=== PATIENT | female | born 1985 | race Caucasian/White ===

== ENCOUNTER 2016-07-09 16:39 | Observation (INO) | payer SELFPAY ==
[~2016-07-09] VITALS: Ht 157.5 cm; Wt 85.0 kg
[~2016-07-09 16:39] MED LIST: ABIL2TAB2 PO; ALPR0.5T3 PO
[2016-07-09 17:00] VITALS: BP 107/56; PULSE 81; RESP 14; TEMP 98.2; O2SAT 98
[2016-07-09] MEDS ORDERED: SODIUM CHLOR 0.9% 1000 ML INJ 1,000 ML IV ONE ×2 (17:01→20:30)
--- NOTE | 2016-07-09 17:05 | PD ---
HPI Chief Complaint: OD/ Ingestion Time Seen by Provider: 17:05 Travel History International Travel<30 days: No Contact w/Intl Traveler<30days: No History of Present Illness HPI Patient is a 31-year-old female who presents to the emergency Department under Beck act after intentional overdose. Patient states that her intent was not to harm herself however she wanted to just "relax". She reports taking 10 - 0.5MG Xanax and 5 Wellbutrin XL 150 mg tablets. She denies any physical complaints at this time. She denies any suicidal or homicidal ideations, she denies any illicit drug use. She does endorse tobacco use. Patient further denies any visual or auditory hallucinations, she denies any new family or life stressors. [facility] Past Medical History Anxiety: Yes Depression: Yes Diminished Hearing: No Hypertension: Yes Immunizations Current: No Schizophrenia: Yes (schizoaffective disorder) : 0 Para: 0 Miscarriage: 0 : 0 Social History Alcohol Use: Yes (Social - 1-2x a week per pt.) Tobacco Use: Yes (Varies per pt.) Substance Use: No (Patient denies. ) Allergies-Medications (Allergen,Severity, Reaction): Coded Allergies: No Known Allergies (Verified , 07/09/16) Per pt. Reported Meds & Prescriptions Reported Meds & Active Scripts Active Reported Abilify (Aripiprazole) 2 Mg Tab 2 Mg PO DAILY Alprazolam 0.5 Mg Tab 0.5 Mg PO DAILY PRN Review of Systems Except as stated in HPI: all other systems reviewed are Neg Psychiatric: Positive: Anxiety, Depression Physical Exam Narrative GENERAL: Well-developed, well-nourished, alert female. Resting comfortably in no acute distress. SKIN: Warm and dry. HEAD: Atraumatic. Normocephalic. EYES: Pupils equal and round. No scleral icterus. No injection or drainage. ENT: No nasal bleeding or discharge. Mucous membranes pink and moist. NECK: Trachea midline. No JVD. CARDIOVASCULAR: Regular rate and rhythm. No murmur appreciated. RESPIRATORY: No accessory muscle use. Clear to auscultation. Breath sounds equal bilaterally. GASTROINTESTINAL: Abdomen soft, non-tender, nondistended. Hepatic and splenic margins not palpable. MUSCULOSKELETAL: No obvious deformities. No clubbing. No cyanosis. No edema. NEUROLOGICAL: Awake and alert. No obvious cranial nerve deficits. Motor grossly within normal limits. Normal speech. PSYCHIATRIC: Flat mood and affect; insight and judgment impaired. Data Data Last Documented VS Vital Signs Date Time Temp Pulse Resp B/P Pulse Ox O2 Delivery O2 Flow Rate FiO2 07/09/16 18:16 79 15 111/71 97 Room Air 07/09/16 17:00 98.2 Orders Electrocardiogram (07/09/16 17:01) Alcohol (Ethanol) (07/09/16 17:01) Complete Blood Count With Diff (07/09/16 17:) Comprehensive Metabolic Panel (07/09/16 17:01) Drug Screen, Random Urine (07/09/16 17:01) Salicylates (Aspirin) (07/09/16 17:01) Tylenol (Acetaminophen) (07/09/16 17:01) Ua Includes Microscopic (07/09/16 17:01) Iv Access Insert/Monitor (07/09/16 17:01) Ecg Monitoring (07/09/16 17:01) Oximetry (07/09/16 17:01) Psych Screen (07/09/16 17:01) Sodium Chloride 0.9% Flush (Ns Flush) (07/09/16 17:15) Sodium Chlor 0.9% 1000 Ml Inj (Ns 1000 M (07/09/16 17:01) Electrocardiogram (07/09/16 19:00) Diet Regular Basic (07/09/16 Dinner) Admit Order (Ed Use Only) (07/09/16 18:35) Labs Laboratory Tests Test 07/09/16 07/09/16 17:25 17:32 White Blood Count 7.0 TH/MM3 Red Blood Count 4.09 MIL/MM3 Hemoglobin 12.4 GM/DL Hematocrit 37.0 % Mean Corpuscular Volume 90.3 FL Mean Corpuscular Hemoglobin 30.3 PG Mean Corpuscular Hemoglobin 33.5 % Concent Red Cell Distribution Width 12.5 % Platelet Count 207 TH/MM3 Mean Platelet Volume 8.3 FL Neutrophils (%) (Auto) 52.8 % Lymphocytes (%) (Auto) 36.3 % Monocytes (%) (Auto) 8.5 % Eosinophils (%) (Auto) 1.3 % Basophils (%) (Auto) 1.1 % Neutrophils # (Auto) 3.7 TH/MM3 Lymphocytes # (Auto) 2.5 TH/MM3 Monocytes # (Auto) 0.6 TH/MM3 Eosinophils # (Auto) 0.1 TH/MM3 Basophils # (Auto) 0.1 TH/MM3 CBC Comment DIFF FINAL Differential Comment Sodium Level 143 MEQ/L Potassium Level 4.1 MEQ/L Chloride Level 112 MEQ/L Carbon Dioxide Level 24.2 MEQ/L Anion Gap 7 MEQ/L Blood Urea Nitrogen 12 MG/DL Creatinine 0.92 MG/DL Estimat Glomerular Filtration 70 ML/MIN Rate Random Glucose 57 MG/DL Calcium Level 8.4 MG/DL Total Bilirubin 0.2 MG/DL Aspartate Amino Transf 14 U/L (AST/SGOT) Alanine Aminotransferase 20 U/L (ALT/SGPT) Alkaline Phosphatase 58 U/L Total Protein 6.9 GM/DL Albumin 3.6 GM/DL Salicylates Level 3.5 MG/DL Acetaminophen Level LESS THAN 2.0 MCG/ML Ethyl Alcohol Level LESS THAN 3 MG/DL Urine Color YELLOW Urine Turbidity HAZY Urine pH 6.0 Urine Specific [place] 1.023 Urine Protein TRACE mg/dL Urine Glucose (UA) NEG mg/dL Urine Ketones NEG mg/dL Urine Occult Blood NEG Urine Nitrite NEG Urine Bilirubin NEG Urine Urobilinogen 2.0 MG/DL Urine Leukocyte Esterase LARGE Urine RBC 2 /hpf Urine WBC 27 /hpf Urine Squamous Epithelial 3 /hpf Cells Urine Mucus FEW /lpf Microscopic Urinalysis Comment Urine Opiates Screen NEG Urine Barbiturates Screen NEG Urine Amphetamines Screen NEG Urine Benzodiazepines Screen POS Urine Cocaine Screen NEG Urine Cannabinoids Screen NEG MDM Medical Decision Making Medical Screen Exam Complete: Yes Emergency Medical Condition: Yes Interpretation(s) Vital Signs Date Time Temp Pulse Resp B/P Pulse Ox O2 Delivery O2 Flow Rate FiO2 07/09/16 17:00 98.2 81 14 107/56 98 Differential Diagnosis Cardiac arrhythmia versus intentional overdose versus unintentional overdose versus electrolyte abnormality versus hyperthermia versus hypotension versus respiratory distress versus seizures Narrative Course Patient is a 31-year-old female who presented to emergency department via EMS under a Beck act for an overdose. Patient reports overdose was not to harm herself. Patient's vital signs are currently stable, she is resting comfortably with no physical complaints. Labs ordered, EKG ordered. Patient placed on telemetry monitoring, continuous pulse oximetry, IV access established. Poison control stated that due to the Wellbutrin it's an automatic 24-hour admission for observation. Patient is at risk for seizures, QRS and QT prolongation, hypotension, hyperthermia. Management will be symptomatic at this time. Initial EKG at 1721 shows sinus rhythm with a rate of 83. EP EKG ordered for 1899. Dr. Red accepted admission under observation for Dr. Valdez. Diagnosis Primary Impression: Overdose Qualified Code: T50.904A - Overdose, undetermined intent, initial encounter Admitting Information Admitting Physician Requests: Observation Condition: Stable Vicky Fregoso Jul 09, 2016 17:05
[2016-07-09 17:10] VITALS: O2SAT 98
[2016-07-09] MEDS ORDERED: SODIUM CHLORIDE 0.9% FLUSH 5 ML FLUSH IVF PRN (17:15)
[2016-07-09 17:34] VITALS: BP 123/76; PULSE 79; RESP 15; O2SAT 97
[2016-07-09 17:35] LABS: AUTOMATED NEUTROPHIL # 3.7 TH/MM3 (1.8-7.7); BASOPHIL # 0.1 TH/MM3 (0-0.2); BASOPHIL % 1.1 % (0.0-2.0); EOSINOPHIL # 0.1 TH/MM3 (0-0.4); EOSINOPHIL % 1.3 % (0.0-4.0); HEMO FLAGS DIFF FINAL; LYMPH % 36.3 % (9.0-44.0); LYMPHOCYTE # 2.5 TH/MM3 (1.0-4.8); MEAN CELL VOLUME 90.3 FL (80.0-100.0); MEAN CORPUSCULAR HEMOGLOBIN 30.3 PG (27.0-34.0); MEAN CORPUSCULAR HGB CONC 33.5 % (32.0-36.0); MONO % 8.5 % (0.0-8.0); NEUT % 52.8 % (16.0-70.0); PLATELET COUNT 207 TH/MM3 (150-450); RED BLOOD COUNT 4.09 MIL/MM3 (4.00-5.30); RED CELL DISTRIBUTION WIDTH 12.5 % (11.6-17.2)
[2016-07-09 17:52] LABS: BLOOD, URINE NEG (NEG); GLUCOSE,URINE NEG (NEG); KETONE, URINE NEG (NEG); MUCUS URINE FEW /lpf (OCC); NITRITE,URINE NEG (NEG); SQUAMOUS EPITHELIAL CELL URINE 3 /hpf (0-5); URINE COLOR YELLOW (YELLW/STRAW)
[2016-07-09 17:58] LABS: AMPHETAMINE, URINE NEG (NEG); BARBITURATES, URINE NEG (NEG); COCAINE, URINE NEG (NEG)
[2016-07-09 18:16] VITALS: BP 111/71; PULSE 79; RESP 15; O2SAT 97
[2016-07-09 18:16] LABS: ALT (GPT) 20 U/L (10-53); ANION GAP 7 MEQ/L (5-15); AST (GOT) 14 U/L (15-37); BICARBONATE 24.2 MEQ/L (21.0-32.0); BLOOD UREA NITROGEN 12 MG/DL (7-18); CHLORIDE 112 MEQ/L (98-107); GLOMERULAR FILTRATION RATE 70 ML/MIN (>89); POTASSIUM 4.1 MEQ/L (3.5-5.1); SODIUM (NA) 143 MEQ/L (136-145)
[2016-07-09 18:18] LABS: ACETAMINOPHEN LESS THAN 2.0 MCG/ML (10.0-30.0); ALKALINE PHOSPHATASE 58 U/L (45-117); TOTAL BILIRUBIN ADULT 0.2 MG/DL (0.2-1.0)
[2016-07-09 19:19] VITALS: BP 95/62; PULSE 95; RESP 14; O2SAT 97
[2016-07-09] MEDS ORDERED: NALOXONE HCL 0.4 MG/ML AMP IV PRN (20:15)
[2016-07-09 20:51] VITALS: BP 106/65; PULSE 104; RESP 14; O2SAT 97
[2016-07-09] MEDS ORDERED: ONDANSETRON HCL 4 MG/2 ML VIAL IVP PRN (21:00)
[2016-07-09 21:06] LABS: BETA HCG QUANT LESS THAN 1 MIU/ML (0-5)
[2016-07-09] MEDS: SODIUM CHLOR 0.9% 1000 ML INJ 1,000 ML IV SCH (21:09)
[2016-07-09] MEDS: HEPARIN SODIUM - SQ 10,000 UNITS/ML VIAL SQ SCH (21:09)
[2016-07-10] VITALS (7 sets, daily range): BP systolic 91–125; BP diastolic 52–85; PULSE 76–92; RESP 14–21; TEMP 98.2–98.3; O2SAT 98–99
--- NOTE | 2016-07-10 08:51 | HHI.HP ---
HPI Service [facility] Primary Care Physician Rebeca Mercado Admission Diagnosis OD Diagnoses: Chief Complaint: OD (Reena Joshi) Travel History International Travel<30 Days: No Contact w/Intl Traveler <30 Da: No (Reena Joshi) History of Present Illness Patient is a 31-year-old female who presented to the emergency Department under Beck act after intentional overdose. Pt. not a reliable historian, states she can't recall anything and was just "trying to sleep". Denies suicidal ideation or attempt, wants to know who called to bring her to hospital. Endorses hx of anxiety, no prior suicide attempts. Review of EMR shows 2 ER visits last year for suicidal ideation. States she only takes Xanax but bottles found at home indicate she takes Abilify and Wellbutrin. She reported to ED taking 10 - 0.5MG Xanax and 5 Wellbutrin XL 150 mg tablets. Beck Act statement reviewed, indicated that pt. called mother and YULIA went to her house, found house unlocked. Pt. was found on the floor with a cross, surrounded by pictures and suicide notes. In the ED, pt. evaluated, labs completed. BMP remarkable for low blood glucose of 57. CBC normal. EKG SR, no acute findings, normal QT. Poison control stated that due to the Wellbutrin it's an automatic 24-hour admission for observation. Patient is at risk for seizures, QRS and QT prolongation, hypotension, hyperthermia. Initial EKG at 1721 shows sinus rhythm with a rate of 83. Pt. examined in ED, only complains of dizziness, no visual or auditory hallucinations. She is smiling during evaluation, does not want to elaborate on hx of anxiety. When asked about previous ED visits, she denies them. Has no complaints. Pt. admitted for further evaluation and treatment. ( Reena Joshi) Review of Systems ROS Limitations: Uncooperative ("I don't remember" ) Constitutional: COMPLAINS OF: Dizziness (Reena Joshi) Past Family Social History Past Medical History Depression Anxiety Reported hx of HTN, denies any Past Surgical History None Reported Medications Reported Meds & Active Scripts Active Reported Abilify (Aripiprazole) 2 Mg Tab 2 Mg PO DAILY Alprazolam 0.5 Mg Tab 0.5 Mg PO DAILY PRN (Reena Joshi) Allergies: Coded Allergies: No Known Allergies (Verified , 07/09/16) Per pt. Active Ordered Medications Inpatient Medications Aripiprazole 2 mg 2 mg DAILY PO ; Start 07/10/16 at 09:00 Heparin Sodium (Porcine) (Heparin Inj) 5,000 units Q12H SQ Last administered on 07/09/16 21:09; Start 07/09/16 at 21:00 IV Flush (NS Flush) 2 ml UNSCH PRN IVF FLUSH AFTER USING IV ACCESS; Start 07/09 at 17:15 Naloxone HCl (Narcan Inj) 0.4 mg UNSCH PRN IV SEE LABEL COMMENTS; Start at 20:15 Ondansetron HCl (Zofran Inj) 4 mg Q6H PRN IVP NAUSEA OR VOMITING; Start at 21:00 Sodium Chloride (NS 1000 ml Inj) 1,000 ml @ 999 mls/hr BOLUS ONCE IV Last administered on 07/09/16 20:34; Start 07/09/16 at 20:30; Stop 07/09/16 at 21:30 ; Status DC Family History Mother, alive and well, hx HTN Father, alive and well, doesn't know his medical hx Sister, hx of drug abuse Social History 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 Lives alone, not , no kids. Smokes 2 ppd, no ETOH, no substance abuse. (Reena Joshi) Physical Exam Vital Signs Vital Signs Date Time Temp Pulse Resp B/P Pulse Ox O2 Delivery O2 Flow Rate FiO2 07/10/16 06:05 116/56 07/10/16 04:09 84 106/67 07/10/16 03:30 80 17 103/61 98 Room Air 07/10/16 00:00 87 21 91/52 Room Air 07/09/16 20:51 104 14 106/65 97 Room Air 07/09/16 19:19 95 14 95/62 97 Room Air 07/09/16 18:16 79 15 111/71 97 Room Air 07/09/16 17:34 79 15 123/76 97 Room Air 07/09/16 17:10 98 Room Air 07/09/16 17:10 79 14 98 Room Air 07/09/16 17:00 98.2 81 14 107/56 98 Physical Exam GENERAL: This is a well-nourished, well-developed patient, in no apparent distress. SKIN: No rashes, ecchymoses or lesions. Cool and dry. HEAD: Atraumatic. Normocephalic. No temporal or scalp tenderness. EYES: Pupils equal round and reactive. Extraocular motions intact. No scleral icterus. No injection or drainage. ENT: Nose without bleeding, purulent drainage or septal hematoma. Throat without erythema, tonsillar hypertrophy or exudate. Uvula midline. Airway patent. NECK: Trachea midline. No JVD or lymphadenopathy. Supple, nontender, no meningeal signs. CARDIOVASCULAR: Regular rate and rhythm without murmurs, gallops, or rubs. RESPIRATORY: Clear to auscultation. Breath sounds equal bilaterally. No wheezes , rales, or rhonchi. GASTROINTESTINAL: Abdomen soft, non-tender, nondistended. No hepato-splenomegaly , or palpable masses. No guarding. MUSCULOSKELETAL: Extremities without clubbing, cyanosis, or edema. No joint tenderness, effusion, or edema noted. No calf tenderness. Negative Homans sign bilaterally. NEUROLOGICAL: Awakes to voice, oriented x 3. No focal deficits. Cranial nerves II through XII intact. Motor and sensory grossly within normal limits. Five out of 5 muscle strength in all muscle groups. Normal speech. PSYCHIATRIC: pt. smiling during interview, denies SI,HI. Reluctant to elaborate on why she is here. Little direct eye contact. Laboratory Laboratory Tests Test 07/09/16 07/09/16 17:25 17:32 White Blood Count 7.0 Red Blood Count 4.09 Hemoglobin 12.4 Hematocrit 37.0 Mean Corpuscular Volume 90.3 Mean Corpuscular Hemoglobin 30.3 Mean Corpuscular Hemoglobin 33.5 Concent Red Cell Distribution Width 12.5 Platelet Count 207 Mean Platelet Volume 8.3 Neutrophils (%) (Auto) 52.8 Lymphocytes (%) (Auto) 36.3 Monocytes (%) (Auto) 8.5 Eosinophils (%) (Auto) 1.3 Basophils (%) (Auto) 1.1 Neutrophils # (Auto) 3.7 Lymphocytes # (Auto) 2.5 Monocytes # (Auto) 0.6 Eosinophils # (Auto) 0.1 Basophils # (Auto) 0.1 CBC Comment DIFF FINAL Differential Comment Sodium Level 143 Potassium Level 4.1 Chloride Level 112 Carbon Dioxide Level 24.2 Anion Gap 7 Blood Urea Nitrogen 12 Creatinine 0.92 Estimat Glomerular Filtration 70 Rate Random Glucose 57 Calcium Level 8.4 Total Bilirubin 0.2 Aspartate Amino Transf 14 (AST/SGOT) Alanine Aminotransferase 20 (ALT/SGPT) Alkaline Phosphatase 58 Total Protein 6.9 Albumin 3.6 Human Chorionic Gonadotropin, LESS THAN 1 Quant Salicylates Level 3.5 Acetaminophen Level LESS THAN 2.0 Ethyl Alcohol Level LESS THAN 3 Urine Color YELLOW Urine Turbidity HAZY Urine pH 6.0 Urine Specific [place] 1.023 Urine Protein TRACE Urine Glucose (UA) NEG Urine Ketones NEG Urine Occult Blood NEG Urine Nitrite NEG Urine Bilirubin NEG Urine Urobilinogen 2.0 Urine Leukocyte Esterase LARGE Urine RBC 2 Urine WBC 27 Urine Squamous Epithelial 3 Cells Urine Mucus FEW Microscopic Urinalysis Comment Urine Opiates Screen NEG Urine Barbiturates Screen NEG Urine Amphetamines Screen NEG Urine Benzodiazepines Screen POS Urine Cocaine Screen NEG Urine Cannabinoids Screen NEG (Reena Joshi) Result Diagram: 07/09/16 17207/09/161724 Assessment and Plan Problem List: (1) Suicide attempt (2) Benzodiazepine overdose (3) Unspecified episodic mood disorder (4) Overdose (5) Anxiety (6) Tobacco abuse Assessment and Plan Admit to Dr. Valdez 31-year-old female who presented to the emergency Department under Beck act after intentional overdose. States just "trying to sleep", denies suicidal ideation or attempt. Hx anxiety, depression. Has visited ED 2 x in the past 6 months for suicide ideation. -Monitor telemetry for QT interval -Seizure precautions -Monitor VS, sats -Repeat BMP now -EKG x 3 reviewed, QT stable [id number] -neuro checks stable -continue IVF -Sitter at bsd now, discussed with RN and charge nurse. Pt at risk for self harm. -Psychiatric consultation -Will follow on BMP report if normal, pt. cleared to proceed with discharge to psych if psychiatrist in agreement. Hx of anxiety, depression-recurrence -Continue Abilify Home medications reviewed and initiated as indicated. SCDs/Heparin for DVT prophylaxis Plan of care discussed with pt, RN, and attending. Further management of the patient will dependent on the hospital. This patient was seen by myself and Dr. Valdez, this H/P is written on his behalf. ADDENDUM 1500 07/10/2016 BMP reviewed, stable. No ekg abnormalities has been evaluated by psychiatry, recommends sitter and tx to psych when medically stable Pt. medically stable to proceed to psych Discharge to psych today (Reena Joshi) Assessment and Plan Patient seen and examined as above Chart reviewed Meds and labs reviewed Previous notes reviewed Plan of care discussed with HEAD WORKER Discussed with patient Discussed with psychiatrist (Sherly Valdez MD) Problem Qualifiers (1) Benzodiazepine overdose: Qualified Code: T42.4X4A - Benzodiazepine overdose, undetermined intent, initial encounter (2) Overdose: Qualified Code: T50.904A - Overdose, undetermined intent, initial encounter Reena Joshi Jul 10, 2016 08:51 Sherly Valdez MD Jul 10, 2016 16:07
[2016-07-10] MEDS ORDERED: ARIPiprazole 2 MG TAB PO SCH (09:00)
[2016-07-10] MEDS: SODIUM CHLOR 0.9% 1000 ML INJ 1,000 ML IV SCH (10:43)
[2016-07-10] MEDS: HEPARIN SODIUM - SQ 10,000 UNITS/ML VIAL SQ SCH (10:44)
--- NOTE | 2016-07-10 13:32 | PD.CONS ---
Provisional Diagnosis Admission Date Jul 09, 2016 at 18:37 [place] I. Unspecified anxiety [place] II. Deferred [place] III. Denies History of Present Illness Service Psychiatry Consult Requested By Primary Care Physician Rebeca LOPEZ The patient is a 31-year-old woman, domiciled alone, single, unemployed, with psychiatric history of anxiety, no previous psychiatric hospitalizations, no previous suicide attempts, she is on Xanax 0.5 mg when necessary for anxiety, who presented to the emergency Department under Beck act after intentional overdose. As per ER physician "Pt. not a reliable historian, states she can't recall anything and was just "trying to sleep". Denies suicidal ideation or attempt, wants to know who called to bring her to hospital. Endorses hx of anxiety, no prior suicide attempts. Review of EMR shows 2 ER visits last year for suicidal ideation. States she only takes Xanax but bottles found at home indicate she takes Abilify and Wellbutrin. She reported to ED taking 10 - 0.5MG Xanax and 5 Wellbutrin XL 150 mg tablets. Bekc Act statement reviewed, indicated that pt. called mother and YULIA went to her house, found house unlocked. Pt. was found on the floor with a cross, surrounded by pictures and suicide notes. In the ED, pt. evaluated, labs completed. BMP remarkable for low blood glucose of 57. CBC normal. EKG SR, no acute findings, normal QT. Poison control stated that due to the Wellbutrin it' s an automatic 24-hour admission for observation. Patient is at risk for seizures, QRS and QT prolongation, hypotension, hyperthermia. Initial EKG at 1721 shows sinus rhythm with a rate of 83. Pt. examined in ED, only complains of dizziness, no visual or auditory hallucinations. She is smiling during evaluation, does not want to elaborate on hx of anxiety. When asked about previous ED visits, she denies them". On psychiatric evaluation today patient is found superficially cooperative, distant, oppositional for the evaluation. Patient says that she doesn't remember the reason she is in the hospital, she says that she wants to sleep and she woke up in the hospital, but she doesn't remember anything what happened while she was asleep. She says that she has been stressed in the last days, but not depressed. She denies sadness, denies anhedonia, denies hopelessness, denies helplessness, she denies low appetite, denies low energy, denies guiltiness, she denies suicidal and anxiety. Patient says that she has many things to live for. She says that she enjoys life and she would never kill herself. She does report anxiety, Mostly related with unemployed and financial stressors, but she takes Xanax "once in a while and that controls me" . When she was confronted about the reason of her ER visit and Beck act, she first states she did not know she was Beck acted and she says that she doesn't really know what were talking about. Then she was red the Beck act information , but she still stays that she doesn't know what he talked about, but she did not write anything about committing suicide or dying. Patient is oriented is oriented 3, even though she is guarded, no paranoia, delusions, disorganized behavior, agitation, gross cognitive impairment is observed. Patient denies the use of alcohol and illicit drugs. Review of Systems Constitutional: DENIES: Diaphoretic episodes, Fatigue, Fever, Weight gain, Weight loss, Chills, Dizziness, Change in appetite, Night Sweats Endocrine: DENIES: Abnorml menstrual pattern, Heat/cold intolerance, Polydipsia , Polyuria, Polyphagia Eyes: DENIES: Blurred vision, Diplopia, Eye inflammation, Eye pain, Vision loss , Photosensitivity, Double Vision Ears, nose, mouth, throat: DENIES: Tinnitus, Hearing loss, Vertigo, Nasal discharge, Oral lesions, Throat pain, Hoarseness, Ear Pain, Running Nose, Epistaxis, Sinus Pain, Toothache, Odynophagia Respiratory: DENIES: Apneas, Cough, Snoring, Wheezing, Hemoptysis, Sputum production, Shortness of breath Cardiovascular: DENIES: Chest pain, Palpitations, Syncope, Dyspnea on Exertion , PND, Lower Extremity Edema, Orthopnea, Claudication Gastrointestinal: DENIES: Abdominal pain, Black stools, Bloody stools, Constipation, Diarrhea, Nausea, Vomiting, Difficulty Swallowing, Anorexia Musculoskeletal: DENIES: Joint pain, Muscle aches, Stiffness, Joint Swelling, Back pain, Neck pain Integumentary: DENIES: Abnormal pigmentation, Pruritus, Rash, Nail changes, Breast masses, Breast skin changes, Nipple discharge Hematologic/lymphatic: DENIES: Bruising, Lymphadenopathy Immunologic/allergic: DENIES: Eczema, Urticaria Neurologic: DENIES: Abnormal gait, Headache, Localized weakness, Paresthesias, Seizures, Speech Problems, Tremor, Poor Balance Psychiatric: COMPLAINS OF: Anxiety, DENIES: Confusion, Mood changes, Depression, Hallucinations, Agitation, Suicidal Ideation, Homicidal Ideation, Delusions Past Family Social History Coded Allergies: No Known Allergies (Verified , 07/09/16) Per pt. Reported Medications Aripiprazole (Abilify)2 Mg Tab2 Mg PO DAILY #30 TAB Ref 0 05/27/16 Alprazolam 0.5 Mg Tab0.5 Mg PO DAILY PRN (ANXIETY) Ref 0 05/27/16 Current Medications Medications (Trade) Dose Ordered Sig/Ariadna Route Start Time Stop Time Status Last Admin IV Flush 2 ml 2 ml UNSCH PRN IVF 07/09/16 17:15 (NS 1000 ml Inj) 1,000 ml @ 100 mls/hr Q10H IV 07/09/16 21:00 07/10/16 10:43 (Zofran Inj) 4 mg Q6H PRN IVP 07/09/16 21:00 (Heparin Inj) 5,000 units Q12H SQ 07/09/16 21:00 07/10/16 10:44 (Narcan Inj) 0.4 mg UNSCH PRN IV 07/09/16 20:15 (Abilify) 2 mg DAILY PO 07/10/16 09:00 07/10/16 10:43 Family History She denies Social History Patient was born in [place], she has been living in [place] for 33 years, she is alone, she is single, no kids, unemployed, she has a bachelor degree Physical Exam Vital Signs Vital Signs Date Time Temp Pulse Resp B/P Pulse Ox O2 Delivery O2 Flow Rate FiO2 07/10/16 10:30 76 20 125/85 99 Room Air 07/09/16 17:00 98.2 I/O 07/09/16 07/09/16 07/10/16 08:00 16:00 00:00 Intake Total 240 ml Balance 240 ml Mental Status Examination Appearance Overweight woman, good hygiene, hospital [facility], guarded, kind of oppositional, superficially cooperative Speech: Hesitant Orientation: x3 Thought Process: Logical Thought Content: Unremarkable Hallucination Type: None Attention and Concentration: Good Suicidal Ideation: Yes Previous Suicide Attempts: No Homicidal Ideation: No Previous Homicide Attempts: No Judgement: Impulsive Affect: Irritable Mood: Angry Motor Activity: Normal gait Assessment & Plan Problem List: (1) Major depressive disorder, single episode, severe without psychosis Assessment & Plan: The patient is a 31-year-old woman, domiciled alone, single, unemployed, with psychiatric history of anxiety, no previous psychiatric hospitalizations, no previous suicide attempts, she is on Xanax 0.5 mg when necessary for anxiety, who presented to the emergency Department under Beck act after intentional overdose. Patient is a very poor historian, very superficial, oppositional and guarded. She continues to say that she doesn't remember overdosing, she doesn't remember writing in a suicidal statement suicidal note as her mother explained and he sustained in Beck act. At this moment she denies depression, she denies anxiety, she denies perceptual disturbances, she denies suicidal or homicidal ideation. He is my opinion the patient is minimizing symptomatology of depression and current episodes of suicidal attempt and obviously the circumstances around her depression and suicidal attempt. Patient represents a high risk an imminent danger to herself and needs psychiatric admission for stabilization, potential medication treatment, to complete psychiatric assessment, and for safety. More collateral information for the mother is important to complete psychiatric assessment. No psychotropics at this moment. Support and psychoeducation provided. Please transfer patient to psychiatric valerio, is medically clear she is a good candidate for 2600 unit, if she continues to need medical treatment could be a good candidate for the Med[facility] unit. Please, continue one-to-one sitter for safety. ICD Code: F32.2 Assessment & Plan Estimated LOS: Khurram Castillo MD Jul 10, 2016 13:32
[2016-07-10 14:24] LABS: HEMATOCRIT 36.2 % (35.0-46.0); MEAN CELL VOLUME 91.8 FL (80.0-100.0); MEAN CORPUSCULAR HEMOGLOBIN 29.9 PG (27.0-34.0); MEAN CORPUSCULAR HGB CONC 32.5 % (32.0-36.0); PLATELET COUNT 198 TH/MM3 (150-450); RED BLOOD COUNT 3.95 MIL/MM3 (4.00-5.30); RED CELL DISTRIBUTION WIDTH 12.8 % (11.6-17.2); REVIEW FLAG FINAL; WHITE BLOOD COUNT 5.6 TH/MM3 (4.0-11.0)
[2016-07-10 14:46] LABS: BICARBONATE 21.5 MEQ/L (21.0-32.0); POTASSIUM 3.8 MEQ/L (3.5-5.1)
--- NOTE | 2016-07-10 14:57 | HHI.DCPOC ---
Discharge Care Plan Diagnosis: (1) Suicide attempt (2) Benzodiazepine overdose (3) Anxiety (4) Tobacco abuse (5) Unspecified episodic mood disorder (6) Major depressive disorder, single episode, severe without psychosis Your Health Problems Are: Anxiety Goals to Promote Your Health * To prevent worsening of your condition and complications * To maintain your health at the optimal level Directions to Meet Your Goals Take your medications as prescribed Follow your dietary instruction Follow activity as directed Keep your appointments as scheduled Take your immunizations and boosters as scheduled If your symptoms worsen call your PCP, if no PCP go to Urgent Care Center or Emergency Room Smoking is Dangerous to Your Health. Avoid second hand smoke Call the 24-hour hour crisis hotline for domestic abuse at Reena Joshi Jul 10, 2016 14:57
--- NOTE | 2016-07-10 22:34 | EKG ---
Date Performed: 07/09/2016 Time Performed: 21:21:34 PTAGE: 31 years EKG: Sinus rhythm NONSPECIFIC T-WAVE ABNORMALITY BORDERLINE ECG PREVIOUS TRACING : 07/09/2016 19.09 Compared to prior tracing no significant change DOCTOR: Karel Herrera Interpretating Date/Time 07/10/2016 22:31:39
--- NOTE | 2016-07-10 22:37 | EKG ---
Date Performed: 07/09/2016 Time Performed: 19:09:51 PTAGE: 31 years EKG: Sinus rhythm NORMAL ECG PREVIOUS TRACING : 07/09/2016 17.21 Compared to prior tracing no significant change DOCTOR: Karel Herrera Interpretating Date/Time 07/10/2016 22:35:01
--- NOTE | 2016-07-10 22:40 | EKG ---
Date Performed: 07/09/2016 Time Performed: 17:21:57 PTAGE: 31 years EKG: Sinus rhythm NORMAL ECG NO PREVIOUS TRACING DOCTOR: Karel Herrera Interpretating Date/Time 07/10/2016 22:36:30
== END 2016-07-10 17:38 ==
LOC: NEPC 16:39 → NEDH 18:37 → NEPHCDU 07-10 13:15
PROVIDERS: ADMIT Specialist; ATTEND Specialist
DX: T42.4X2A Poisoning by benzodiazepines, intentional self-harm, initial encounter (principal); F32.2 Major depressive disorder, single episode, severe without psychotic features; F25.9 Schizoaffective disorder, unspecified; F41.9 Anxiety disorder, unspecified; I10 Essential (primary) hypertension; Z72.0 Tobacco use
CPT/HCPCS: 80048; 80053; 80307; 80329; 81001; 84702; 85025; 85027; 93005; 96360; 99285; G0378; J1644; J7030; 80320; G0480

== ENCOUNTER 2016-07-10 17:41 | Inpatient (IN) | payer SELFPAY ==
[~2016-07-10] VITALS: Ht 157.5 cm; Wt 82.8 kg
[2016-07-10 17:35] VITALS: BP 128/85; PULSE 75; RESP 16; TEMP 97.7; O2SAT 99
[2016-07-10] MEDS ORDERED: ALUMINUM/MAGNESIUM/SIMETH 30 ML CUP PO PRN (18:00)
[2016-07-10] MEDS ORDERED: ACETAMINOPHEN 325 MG TAB PO PRN (18:00)
[2016-07-10] MEDS ORDERED: LORazepam 2 MG/ML VIAL IM PRN (18:00)
[2016-07-10] MEDS ORDERED: MAGNESIUM HYDROXIDE SUSP 30 ML CUP PO PRN (18:00)
[2016-07-10] MEDS ORDERED: LORazepam 1 MG TAB PO PRN (18:00)
[2016-07-10] MEDS: REMOVE OLD NICOTINE PATCH T-DERMAL SCH (21:00)
[2016-07-11 06:00] VITALS: BP 120/80; PULSE 69; RESP 16; TEMP 97.4
[2016-07-11] MEDS: NICOTINE 14 MG/24 HR PATCH T-DERMAL SCH (09:00)
--- NOTE | 2016-07-11 10:20 | HHI.HP ---
Provisional Diagnosis Admission Date Jul 10, 2016 at 17:41 [place] I. Generalized anxiety disorder [place] II. No diagnosis [place] III. Please see the emergency room evaluation [place] IV. Moderate stress difficulty coping [place] V. GAF of 45 Certification of Person's Competence To Provide Express and Informed Consent I have personally examined Samina Watson , a person being served at [facility] on, Jul 11, 2016 10:09. Express and informed consent means consent voluntarily given in writing, by a competent person, after sufficient explanation and disclosure of the subject matter involved to enable the person to make a knowing and willful decision without any element of force, fraud, deceit, duress, or other form of constraint or coercion. This person is 18 years of age or older, is not now known to be incompetent to consent to treatment with a guardian advocate, and does not have a health care surrogate or proxy currently making medical treatment decisions. I have found this person to be one of the following: [x] Competent to provide express and informed consent, as defined above, for voluntary admission to this facility and is competent to provide express and informed consent for treatment. He/she has the consistent capacity to make well reasoned, willful, and knowing decisions concerning his or her medical or mental health treatment. The person fully and consistently understands the purpose of the admission for examination/placement and is fully capable of personally exercising all rights assured under [place] [] Incompetent to provide express and informed consent to voluntary admission, and this is incompetent to provide express and informed consent to treatment. The person must be transferred to involuntary status and a petition for a guardian advocate filed with the Circuit Court. [] Refusing to provide express and informed consent to voluntary admission but is competent to provide express and informed consent for treatment. The person must be discharged or transferred to involuntary status. Form shall be completed within 24 hours of a person's arrival at the receiving facility and filed in the clinical record of each person: 1. Admitted on a voluntary basis 2. Permitted to provide express and informed consent to his/her own treatment 3. Allowed to transfer from involuntary to voluntary status 4. Prior to permitting a person to consent to his or her own treatment after having been previously found incompetent to consent to treatment. History of Present Illness Capacity: Has Capacity HPI This is a 31-year-old white female who is single and unemployed with a history of anxiety. Was admitted after she was medically stabilized from age hard in the emergency room. Patient claimed that she does not remember much other than taking just the 1 or 2 Xanax to help her sleep and then she ended up here. She claimed that she does not remember calling her mother and her mother had called Police Department to make sure that she is safe she was found in her house on the floor with the cross surrounded by pictures and questionable suicide note or her diary. Patient denies any suicidal ideation intentions or plan. She has no previous suicide attempts. She was hospitalized once for few days and discharged. She claimed that she does not remember taking Abilify or Wellbutrin she in the past was prescribed but did not like it so was not taking it and does not wish to take any medication. 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 She has a bachelor's degree. She denies any alcohol or drug use and/or abuse. All this things are going on for the last 1 year specially her anxiety and was prescribed Xanax is when necessary but other than that she has not taken any medication. Patient denies any auditory or visual hallucinations. Denies any paranoid or grandiose delusion. Review of Systems Except as stated in HPI: all other systems reviewed are Neg Psychiatric: COMPLAINS OF: Anxiety, Mood changes Past Psych History Psychological trauma history Patient denied any physical verbal sexual abuse growing up Violence risk - others (6 mos) Patient denies Violence risk - self (6 mos) Patient denies any suicidal ideation intentions of plan. She does not remember much around surrounding the circumstances but she remember taking couple of Xanax to help her sleep Substance Abuse History Drugs/Alcohol past 12 months Patient denies any history of alcohol or drug abuse Past Family Social History Coded Allergies: No Known Allergies (Verified , 07/09/16) Per pt. Discontinued Reported Medications Aripiprazole (Abilify)2 Mg Tab2 Mg PO DAILY #30 TAB Ref 0 05/27/16 Alprazolam 0.5 Mg Tab0.5 Mg PO DAILY PRN (ANXIETY) Ref 0 05/27/16 Current Medications Medications (Trade) Dose Ordered Sig/Ariadna Route Start Time Stop Time Status Last Admin (Ativan) 1 mg Q6H PRN PO 07/10/16 18:00 (Ativan Inj) 1 mg Q6H PRN IM 1/11/17 18:00 (Tylenol) 650 mg Q4H PRN PO 07/10/16 18:00 07/11/16 09:03 (Milk Of Magnesia Liq) 30 ml DAILY PRN PO 07/10/16 18:00 (Mag-Al Plus Susp Liq) 30 ml Q6H PRN PO 07/10/16 18:00 (Habitrol 14 Mg Patch.24 Hr) 1 patch DAILY T-DERMAL 07/11/16 09:00 Miscellaneous Information 1 HS T-DERMAL 07/10/16 21:00 Family History Patient claimed that her family history is positive for drug abuse and her cousins Social History Patient was born in [place]. She is the oldest in the family with one younger brother and one younger sister. She was close to her mother. She does not know her real biological father. Her childhood was described as okay and happy. She denied any physical verbal or sexual abuse growing up. She did finish high school and bachelor's in college. She is planning to take some real estate course. She denied any problem with alcohol or drug abuse denied any legal difficulty. Patient has never been no children. 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 Patient does not wish to take any medication at this time. Patient's Strengths (min. 2) Patient is cooperative and willing to sign voluntary and cooperative with the treatment Physical Exam Patient denied any physical complaints her vital signs are stable she was medically clear in the emergency room please see the emergency room note for detail Vital Signs Vital Signs Date Time Temp Pulse Resp B/P Pulse Ox O2 Delivery O2 Flow Rate FiO2 07/11/16 06:00 97.4 69 16 120/80 07/10/16 17:35 99 Mental Status Examination This is a 31-year-old white female who looks about the same as her stated age was alert oriented 3 cooperative casually dressed her speech was slow without any evidence of loose association. Her mood was described as feeling somewhat ashamed and sorry and occasional anxiety. But denied any crying spell or depressive symptoms. Patient denies any suicidal ideation intentions or plan. Her affect was labile. She denied any auditory or visual hallucinations. Denied any paranoid delusion. She seems to be of average intelligence with poor recent memory. Her insight is fair and her judgment seems to be okay on hypothetical situation. Her gait is normal. Her language is normal. Her fund of knowledge is average Previous Suicide Attempts: No Previous Homicide Attempts: No Assessment & Plan Problem List: (1) Anxiety ICD Code: F41.9 Assessment & Plan Estimated LOS: 3 days. This is a 31-year-old white female who was admitted after she has attempted to hurt herself and taken some overdose patient was medically stabilized and transferred for further care. At the present time patient denies any depressive symptoms or hallucinations. Denies any alcohol or drug abuse. Occasionally she has anxiety. Willing to cooperate with the treatment will observe her and once she is stable she is willing to work as an outpatient.. Admitted to observe and evaluate and treatment. Patient may sign voluntary. She will participate in all the therapeutic activity on the floor. coordinator volunteer services to assist in aftercare and discharge planning. Patient does not wish to take any medication at this time and try just by talking therapy and when necessary Xanax or anti-anxiety. Side effect another alternative treatment were explained to the patient. Request HC Surrog/Guard Advoc?: No Robbie Prescott MD Jul 11, 2016 10:20
--- NOTE | 2016-07-11 11:50 | HHI.PR ---
Subjective Remarks Patient is a 31-year-old female who presented to the emergency Department under Beck act after intentional overdose. Pt. not a reliable historian. She came to the hospital because of the Xanax and questionable Wellbutrin overdose. Beck Act statement reviewed, indicated that pt. called mother, found house unlocked. Pt. was found on the floor with a cross, surrounded by pictures and suicide notes. When patient was medically stable patient was transferred to the psych facility. At present patient has no complaint. She is feeling good. Review of Systems ROS Limitations: For 12 point system unremarkable. Past Family Social History Past Medical History Depression Anxiety Reported hx of HTN, denies any Past Surgical History None Reported Medications Reported Meds & Active Scripts Active Reported Abilify (Aripiprazole) 2 Mg Tab 2 Mg PO DAILY Alprazolam 0.5 Mg Tab 0.5 Mg PO DAILY PRN Allergies: Coded Allergies: No Known Allergies (Verified , 07/09/16) Per pt. Objective Objective Results - Vital Signs Date Time Temp Pulse Resp B/P Pulse Ox O2 Delivery O2 Flow Rate FiO2 07/11/16 06:00 97.4 69 16 120/80 07/10/16 17:35 97.7 75 16 128/85 99 Physical Exam Physical Exam GENERAL: This is a well-nourished, well-developed patient, in no apparent distress. Lying on bed in her room. Patient was seen by RN in the psych facility SKIN: No rashes, ecchymoses or lesions. Cool and dry. HEAD: Atraumatic. Normocephalic. No temporal or scalp tenderness. EYES: Pupils equal round and reactive. Extraocular motions intact. No scleral icterus. No injection or drainage. ENT: Nthroat without erythema, tonsillar hypertrophy or exudate. Uvula midline. Airway patent. NECK: Trachea midline. No JVD or lymphadenopathy. Supple, nontender, no meningeal signs. CARDIOVASCULAR: Regular rate and rhythm without murmurs, gallops, or rubs. RESPIRATORY: Clear to auscultation. Breath sounds equal bilaterally. No wheezes , rales, or rhonchi. GASTROINTESTINAL: Abdomen soft, non-tender, nondistended. No hepato-splenomegaly , or palpable masses. No guarding. MUSCULOSKELETAL: Extremities without clubbing, cyanosis, or edema. No joint tenderness, effusion, or edema noted. No calf tenderness. Negative Homans sign bilaterally. NEUROLOGICAL: Awakes to voice, oriented x 3. No focal deficits. Cranial nerves II through XII intact. Motor and sensory grossly within normal limits. Five out of 5 muscle strength in all muscle groups. Normal speech. PSYCHIATRIC: pt. smiling during interview, denies any anxiety A/P Assessment and Plan (1) Suicide attempt (2) Benzodiazepine overdose (3) Unspecified episodic mood disorder (4) Overdose (5) Anxiety (6) Tobacco abuse Plan 31-year-old female who presented to the emergency Department under Beck act after intentional overdose. Plan for EKG EKG x 3 reviewed, QT stable [id number] Psychiatric treatment as per psychiatrist Hx of anxiety, depression-recurrence -Treatment for psychiatric Home medications reviewed Plan of care discussed with pt and RN. Will follow on when necessary basis call if needed Sherly Valdez MD Jul 11, 2016 11:50 Physical Exam GENERAL: This is a well-nourished, well-developed patient, in no apparent distress. SKIN: No rashes, ecchymoses or lesions. Cool and dry. HEAD: Atraumatic. Normocephalic. No temporal or scalp tenderness. EYES: Pupils equal round and reactive. Extraocular motions intact. No scleral icterus. No injection or drainage. ENT: Nose without bleeding, purulent drainage or septal hematoma. Throat without erythema, tonsillar hypertrophy or exudate. Uvula midline. Airway patent. NECK: Trachea midline. No JVD or lymphadenopathy. Supple, nontender, no meningeal signs. CARDIOVASCULAR: Regular rate and rhythm without murmurs, gallops, or rubs. RESPIRATORY: Clear to auscultation. Breath sounds equal bilaterally. No wheezes , rales, or rhonchi. GASTROINTESTINAL: Abdomen soft, non-tender, nondistended. No hepato-splenomegaly , or palpable masses. No guarding. MUSCULOSKELETAL: Extremities without clubbing, cyanosis, or edema. No joint tenderness, effusion, or edema noted. No calf tenderness. Negative Homans sign bilaterally. NEUROLOGICAL: Awakes to voice, oriented x 3. No focal deficits. Cranial nerves II through XII intact. Motor and sensory grossly within normal limits. Five out of 5 muscle strength in all muscle groups. Normal speech. PSYCHIATRIC: pt. smiling during interview, denies SI,HI. Reluctant to elaborate on why she is here. Little direct eye contact. Laboratory Laboratory Tests Test 07/09/16 07/09/16 17:25 17:32 White Blood Count 7.0 Red Blood Count 4.09 Hemoglobin 12.4 Hematocrit 37.0 Mean Corpuscular Volume 90.3 Mean Corpuscular Hemoglobin 30.3 Mean Corpuscular Hemoglobin 33.5 Concent Red Cell Distribution Width 12.5 Platelet Count 207 Mean Platelet Volume 8.3 Neutrophils (%) (Auto) 52.8 Lymphocytes (%) (Auto) 36.3 Monocytes (%) (Auto) 8.5 Eosinophils (%) (Auto) 1.3 Basophils (%) (Auto) 1.1 Neutrophils # (Auto) 3.7 Lymphocytes # (Auto) 2.5 Monocytes # (Auto) 0.6 Eosinophils # (Auto) 0.1 Basophils # (Auto) 0.1 CBC Comment DIFF FINAL Differential Comment Sodium Level 143 Potassium Level 4.1 Chloride Level 112 Carbon Dioxide Level 24.2 Anion Gap 7 Blood Urea Nitrogen 12 Creatinine 0.92 Estimat Glomerular Filtration 70 Rate Random Glucose 57 Calcium Level 8.4 Total Bilirubin 0.2 Aspartate Amino Transf 14 (AST/SGOT) Alanine Aminotransferase 20 (ALT/SGPT) Alkaline Phosphatase 58 Total Protein 6.9 Albumin 3.6 Human Chorionic Gonadotropin, LESS THAN 1 Quant Salicylates Level 3.5 Acetaminophen Level LESS THAN 2.0 Ethyl Alcohol Level LESS THAN 3 Urine Color YELLOW Urine Turbidity HAZY Urine pH 6.0 Urine Specific [place] 1.023 Urine Protein TRACE Urine Glucose (UA) NEG Urine Ketones NEG Urine Occult Blood NEG Urine Nitrite NEG Urine Bilirubin NEG Urine Urobilinogen 2.0 Urine Leukocyte Esterase LARGE Urine RBC 2 Urine WBC 27 Urine Squamous Epithelial 3 Cells Urine Mucus FEW Microscopic Urinalysis Comment Urine Opiates Screen NEG Urine Barbiturates Screen NEG Urine Amphetamines Screen NEG Urine Benzodiazepines Screen POS Urine Cocaine Screen NEG Urine Cannabinoids Screen NEG (Reena Joshi) Result Diagram: 07/09/16 1725 07/09/16 172 Assessment and Plan Problem List: (1) Suicide attempt (2) Benzodiazepine overdose (3) Unspecified episodic mood disorder (4) Overdose (5) Anxiety (6) Tobacco abuse Assessment and Plan Admit to Dr. Valdez 31-year-old female who presented to the emergency Department under Beck act after intentional overdose. States just "trying to sleep", denies suicidal ideation or attempt. Hx anxiety, depression. Has visited ED 2 x in the past 6 months for suicide ideation. -Monitor telemetry for QT interval -Seizure precautions -Monitor VS, sats -Repeat BMP now -EKG x 3 reviewed, QT stable [id number] -neuro checks stable -continue IVF -Sitter at bsd now, discussed with RN and charge nurse. Pt at risk for self harm. -Psychiatric consultation -Will follow on BMP report if normal, pt. cleared to proceed with discharge to psych if psychiatrist in agreement. Hx of anxiety, depression-recurrence -Continue Abilify Home medications reviewed and initiated as indicated. SCDs/Heparin for DVT prophylaxis Plan of care discussed with pt, RN, and attending. Further management of the patient will dependent on the hospital. This patient was seen by myself and Dr. Valdez, this H/P is written on his behalf. ADDENDUM 1500 07/10/2016 BMP reviewed, stable. No ekg abnormalities has been evaluated by psychiatry, recommends sitter and tx to psych when medically stable Pt. medically stable to proceed to psych Discharge to psych today Objective Objective Results - Vital Signs Date Time Temp Pulse Resp B/P Pulse Ox O2 Delivery O2 Flow Rate FiO2 07/11/16 06:00 97.4 69 16 120/80 07/10/16 17:35 97.7 75 16 128/85 99 Physical Exam Physical Exam PHYSICAL EXAMINATION GENERAL: This is a well-developed, well-nourished female who appears to be in no acute distress. She is alert and awake, []. HEAD: Normocephalic without any lesion or mass noted. Facial features appear symmetric. EYES: Perrla, Normal eye movement, [] Icterus. [] Conj congestion. OROPHARYNGEAL: Oropharynx without erythema or edema. MOUTH/THROAT: Tongue midline []. Buccal mucosa is moist []. NECK: Supple. No nuchal rigidity or lymphadenopathy. Trachea midline without deviation. Thyroid not palpable, no bruits appreciated. CARDIAC: Regular rhythm, regular rate, S1 and S2 are heard. Murmur []; no gallops or rubs. LUNGS: Clear to auscultation bilaterally. [] wheeze, [] rhonchi or [] rale. No use of accessory muscles on inspiration or expiration. ABDOMEN: Soft, nontender, no organomegaly or masses. Bowel sounds are heard in all four quadrants. No rebound. No guarding. EXTREMITIES: [] edema. Pulses equal bilateral. [] cyanosis. NEUROLOGICAL: Patient mood and affect appropriate. Cranial nerves II through XII grossly intact. Muscle strength 5/5 in the upper and lower extremities bilaterally. Deep tendon reflexes are 2+ in the upper and lower extremities bilaterally. SKIN:Warm and moist PSYCH: Mood and affect appropriate Sherly Valdez MD Jul 11, 2016 11:50
[2016-07-11 19:17] VITALS: BP 136/93; PULSE 63; RESP 16; TEMP 97.8; O2SAT 96
[2016-07-11] MEDS: REMOVE OLD NICOTINE PATCH T-DERMAL SCH (21:00)
[2016-07-12 06:18] VITALS: BP 117/81; PULSE 63; RESP 16; TEMP 97.2
[2016-07-12] MEDS: NICOTINE 14 MG/24 HR PATCH T-DERMAL SCH (08:52)
--- NOTE | 2016-07-12 10:33 | HHI.PYPN ---
Subjective Remarks Patient was seen and discussed with the balance staff inspector. Her mother also was concerned and she called and talked to her. Mother reported patient has been feeling paranoid for the last 1 year she believes that the government has made her do the overdose and she took pills and wanted to end her life. Patient does not want to take the medication upon discharge. Some other options were given to the mother. We will try to start her on the Abilify and see if she takes it. Mother wants her to not be discharged and stay in the hospital and get some help. Patient is not a behavior or management problem. Her affect was at times inappropriate. Patient denies any suicidal ideation intentions or plan. Denies any active auditory or visual hallucinations. Continue with the same treatment Review of Systems Except as stated in HPI: all other systems reviewed are Neg Psychiatric: COMPLAINS OF: Anxiety, Mood changes, Delusions Objective Alert: Yes [place]: Person, Place, Situation Mood: Anxious, Depressed Affect: Labile Memory Intact: Recent (mildly impaired) Hallucinations: Other (patient denies any active auditory or visual hallucinations) Delusions: Yes Delusion Type: Paranoid (patient is paranoid that the government is trying to make her take the pills and they are watching her) Suicidal: Ideation (patient denies any suicidal ideation intentions or plan and wants to go home soon) Homicidal: Ideation (patient denies) Insight/Judgement Limited Remarks Attention and concentration improving. Gait normal. Language normal. Fund of knowledge average Vitals/IOs Vital Signs Date Time Temp Pulse Resp B/P Pulse Ox O2 Delivery O2 Flow Rate FiO2 07/12/16 06:18 97.2 63 16 117/81 07/11/16 19:17 96 Assessment & Plan Problem List: (1) Anxiety ICD Code: F41.9 (2) Schizoaffective disorder, chronic condition ICD Code: F25.8 Assessment & Plan Estimated LOS: days Justification for Cont. Inpt. Monitoring of the medication to reduce paranoia and safety issue Request HC Surrog/Guard Advoc?: No Robbie Prescott MD Jul 12, 2016 10:33
[2016-07-12] MEDS ORDERED: ARIPiprazole 10 MG TAB PO SCH (11:00)
--- NOTE | 2016-07-12 11:19 | HHI.PYPN ---
Subjective Remarks Patient was seen and discussed with the staffing operations manager. Reportedly patient has been paranoid for the last 1 year feels like the government is making her do things take the pills and watching her. Upon questioning patient denies that patient claimed that she does not want to take the medication but while she is here she agreed to take Seroquel rather than Abilify gave her migraine. Patient gets easily agitated as she wanted to go home she does not want her mom to be involved in her treatment but the mother was concerned about patient calling her and living messages to her regarding paranoia. Mother is aware off patient not taking the medication and not following up. Mother was also given the option to have the legal guardianship so she can do something about it. Continue with the same treatment Review of Systems Except as stated in HPI: all other systems reviewed are Neg Psychiatric: COMPLAINS OF: Anxiety, Mood changes, Delusions Objective Alert: Yes [place]: Person, Place, Situation Mood: Anxious, Depressed Affect: Labile Memory Intact: Recent (mildly impaired) Hallucinations: Other (patient denies any active auditory or visual hallucinations) Delusions: Yes Delusion Type: Paranoid (patient is paranoid that the government is trying to make her take the pills and they are watching her) Suicidal: Ideation (patient denies any suicidal ideation intentions or plan and wants to go home soon but she had attempted overdose prior to coming to the hospital) Homicidal: Ideation (patient denies) Insight/Judgement Limited Vitals/IOs Vital Signs Date Time Temp Pulse Resp B/P Pulse Ox O2 Delivery O2 Flow Rate FiO2 07/12/16 06:18 97.2 63 16 117/81 07/11/16 19:17 96 Assessment & Plan Problem List: (1) Anxiety ICD Code: F41.9 (2) Schizoaffective disorder, chronic condition ICD Code: F25.8 Assessment & Plan Estimated LOS: days Justification for Cont. Inpt. Monitoring of the medication and risk of decompensation Request HC Surrog/Guard Advoc?: No Robbie Prescott MD Jul 12, 2016 11:19
[2016-07-12] MEDS ORDERED: QUEtiapine FUMARATE 100 MG TAB PO SCH (11:30)
--- NOTE | 2016-07-12 18:47 | EKG ---
Date Performed: 07/11/2016 Time Performed: 14:47:51 PTAGE: 31 years EKG: Sinus rhythm NORMAL ECG PREVIOUS TRACING : 07/09/2016 21.21 Since previous tracing, no significant change noted DOCTOR: Sarah Azevedo Interpretating Date/Time 07/12/2016 18:47:24
[2016-07-12 19:42] VITALS: BP 116/74; PULSE 60; RESP 16; TEMP 97.6; O2SAT 95
[2016-07-12] MEDS: REMOVE OLD NICOTINE PATCH T-DERMAL SCH (20:27)
[2016-07-13 05:22] VITALS: BP 110/70; PULSE 62; RESP 16; TEMP 97.9
[2016-07-13] MEDS: NICOTINE 14 MG/24 HR PATCH T-DERMAL SCH (09:00)
--- NOTE | 2016-07-13 13:59 | HHI.PYPN ---
Subjective Remarks Patient was seen and case discussed with nursing. Patient continues to state that her admission was not a suicide attempts and an accidental overdose secondary to insomnia.'s pleasant and cooperative with exam. Patient minimizes her psychosis is reported by mother Objective Alert: Yes [place]: Person, Place, Situation Mood: Anxious, Depressed Affect: Labile Memory Intact: Recent (mildly impaired) Hallucinations: Other (patient denies any active auditory or visual hallucinations) Delusions: Yes Delusion Type: Paranoid (patient is paranoid that the government is trying to make her take the pills and they are watching her) Suicidal: Ideation (patient denies any suicidal ideation intentions or plan and wants to go home soon but she had attempted overdose prior to coming to the hospital) Homicidal: Ideation (patient denies) Insight/Judgement Poor Vitals/IOs Vital Signs Date Time Temp Pulse Resp B/P Pulse Ox O2 Delivery O2 Flow Rate FiO2 07/13/16 05:22 97.9 62 16 110/70 07/12/16 19:42 95 Assessment & Plan Problem List: (1) Anxiety ICD Code: F41.9 (2) Schizoaffective disorder, chronic condition ICD Code: F25.8 Assessment & Plan Patient is refusing her Seroquel. Consider switching to an injectable antipsychotic on Friday Justification for Cont. Inpt. Patient would decompensate in a less restrictive setting Request HC Surrog/Guard Advoc?: No Chung Tee DO Jul 13, 2016 13:59
[2016-07-13 19:05] VITALS: BP 118/81; PULSE 68; RESP 18; O2SAT 98
[2016-07-13] MEDS: REMOVE OLD NICOTINE PATCH T-DERMAL SCH (21:00)
[2016-07-14 05:39] VITALS: BP 119/68; PULSE 61; RESP 19; TEMP 96.9; O2SAT 97
[2016-07-14] MEDS: NICOTINE 14 MG/24 HR PATCH T-DERMAL SCH (09:00)
--- NOTE | 2016-07-14 13:52 | HHI.PYPN ---
Subjective Remarks Patient was seen and case discussed with nursing. Patient is pleasant and cooperative with exam. Compliant with medications. She is perseverative on discharge. Continues to minimize her overdose. Denies suicidal ideations thought or plan Objective Alert: Yes [place]: Person, Place, Situation Mood: Anxious, Depressed Affect: Labile Memory Intact: Recent (mildly impaired) Hallucinations: Other (patient denies any active auditory or visual hallucinations) Delusions: Yes Delusion Type: Paranoid (patient is paranoid that the government is trying to make her take the pills and they are watching her) Suicidal: Ideation (patient denies any suicidal ideation intentions or plan and wants to go home soon but she had attempted overdose prior to coming to the hospital) Homicidal: Ideation (patient denies) Insight/Judgement Poor Vitals/IOs Vital Signs Date Time Temp Pulse Resp B/P Pulse Ox O2 Delivery O2 Flow Rate FiO2 07/14/16 05:39 96.9 61 19 119/68 97 Assessment & Plan Problem List: (1) Anxiety ICD Code: F41.9 (2) Schizoaffective disorder, chronic condition ICD Code: F25.8 Assessment & Plan Continue current treatment plan Justification for Cont. Inpt. Patient would decompensate in a less restrictive setting Request HC Surrog/Guard Advoc?: No Chung Tee DO Jul 14, 2016 13:52
[2016-07-14 18:48] VITALS: BP 109/75; PULSE 69; RESP 18; O2SAT 97
[2016-07-14] MEDS: REMOVE OLD NICOTINE PATCH T-DERMAL SCH (21:00)
[2016-07-15 06:18] VITALS: BP 109/71; PULSE 65; RESP 18; TEMP 98; O2SAT 100
[2016-07-15] MEDS: NICOTINE 14 MG/24 HR PATCH T-DERMAL SCH (08:55)
--- NOTE | 2016-07-15 10:56 | HHI.PYPN ---
Subjective Remarks Patient was seen and case discussed with nursing. Patient remains in bed consistently throughout the day. She denies this and says she is out and about. Patient is oppositional and focused on discharge. She has poor insight and denies her bizarre behavior continues to claim she did not have a suicide attempt. Her doctor's notes mother statements her to the contrary. She is compliant with medications. Denies positive symptoms. Mood is somewhat elevated and sarcastic Objective Alert: Yes [place]: Person, Place, Situation Mood: Anxious, Depressed Affect: Labile Memory Intact: Recent (mildly impaired) Hallucinations: Other (patient denies any active auditory or visual hallucinations) Delusions: Yes Delusion Type: Paranoid (patient is paranoid that the government is trying to make her take the pills and they are watching her) Suicidal: Ideation (patient denies any suicidal ideation intentions or plan and wants to go home soon but she had attempted overdose prior to coming to the hospital) Homicidal: Ideation (patient denies) Insight/Judgement Poor Vitals/IOs Vital Signs Date Time Temp Pulse Resp B/P Pulse Ox O2 Delivery O2 Flow Rate FiO2 07/15/16 06:18 98.0 65 18 109/71 100 Assessment & Plan Problem List: (1) Anxiety ICD Code: F41.9 (2) Schizoaffective disorder, chronic condition ICD Code: F25.8 Assessment & Plan Continue current treatment plan Justification for Cont. Inpt. Patient will decompensate in a less restrictive setting Request HC Surrog/Guard Advoc?: No Chung Tee DO Jul 15, 2016 10:56
[2016-07-15 12:00] VITALS: BP 129/81; PULSE 113
[2016-07-15 19:21] VITALS: BP 116/76; PULSE 54; RESP 16; TEMP 97.1; O2SAT 100
[2016-07-15] MEDS: REMOVE OLD NICOTINE PATCH T-DERMAL SCH (21:00)
--- NOTE | 2016-07-16 13:50 | HHI.DS ---
Psychiatry Discharge Summary Inpatient Psychiatric care?: Yes Advance Directive: No Reason Not Provided: DOES NOT HAVE Mental Health AdvanceDirective: No Health Care Proxy: No Admission Admission Date Jul 10, 2016 at 17:41 Admission Diagnosis: (1) Schizoaffective disorder, chronic condition ICD Code: F25.8 GAF Score: 45 Brief History This is a 31-year-old white female who is single and unemployed with a history of anxiety. Was admitted after she was medically stabilized from age hard in the emergency room. Patient claimed that she does not remember much other than taking just the 1 or 2 Xanax to help her sleep and then she ended up here. She claimed that she does not remember calling her mother and her mother had called Police Department to make sure that she is safe she was found in her house on the floor with the cross surrounded by pictures and questionable suicide note or her diary. Patient denies any suicidal ideation intentions or plan. She has no previous suicide attempts. She was hospitalized once for few days and discharged. She claimed that she does not remember taking Abilify or Wellbutrin she in the past was prescribed but did not like it so was not taking it and does not wish to take any medication. 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 She has a bachelor's degree. She denies any alcohol or drug use and/or abuse. All this things are going on for the last 1 year specially her anxiety and was prescribed Xanax is when necessary but other than that she has not taken any medication. Patient denies any auditory or visual hallucinations. Denies any paranoid or grandiose delusion. Tobacco Use In Past 30 Days: 5 or More Cigarettes/Day Alcohol Use: Monthly or Less Hospital Course Patient was started was supportive treatment. She reluctantly participated in some of the therapeutic activity on the floor she remained in her room isolating and to herself. No behavior or management problem reported. Patient did not want to take her Seroquel and refused. Because of the past history of some side effect from Abilify. Patient denied any suicidal and/or homicidal ideation intentions or plan. Denies any paranoia. Denied any auditory or visual hallucinations. Patient wants to go home and willing to follow-up as an outpatient at that point arrangements were made for her to be discharged Results Blood Pressure 116 / 76 Vital Signs Date Time Temp Pulse Resp B/P Pulse Ox O2 Delivery O2 Flow Rate FiO2 07/15/16 19:21 97.1 54 16 116/76 100 Please see the EMR Summary of Major Lab Results Nothing significant Summary of Procedures None Imaging None Pending results at discharge: No Medications # of Antipsychotic meds at D/C: 0 Approp Antipsych med options 1 - Minimum of three failed multiple trials of monotherapy. Discharge Discharge Date: Jul 16, 2016 Discharge Diagnosis: (1) Schizoaffective disorder, chronic condition Diagnosis: [place] ICD Code: F25.8 (2) Anxiety Diagnosis: Principal ICD Code: F41.9 Mental Status Exam at Disch Patient was alert oriented 3 did not want to take the medication. Patient denied any suicidal and/or homicidal ideation intentions or plan. Denied any auditory or visual hallucinations. Patient denied any paranoid delusion. Willing to go as an outpatient. Wanted to go home. No behavior or management problem reported here. Pt Condition on Discharge: Stable Discharge Disposition: Discharge Home Discharge Instructions Diet Instructions: As Tolerated, No Restrictions Activities you can perform: Regular-No Restrictions Scheduled Appointment: [facility] (refused) Discharge Time <= 30 minutes Discharge/Advance Care Plan Health Problems: (1) Anxiety (2) Schizoaffective disorder, chronic condition Goals to promote your health * To prevent worsening of your condition and complications * To maintain your health at the optimal level Directions to meet your goals Take your medications as prescribed Follow your dietary instruction Follow activity as directed Keep your appointments as scheduled Take your immunizations and boosters as scheduled If your symptoms worsen call your PCP, if no PCP go to Urgent Care Center or Emergency Room For 20/01 questions related to your inpatient stay or results of tests pending at discharge, please contact Dr. Robbie Prescott at Smoking is Dangerous to Your Health. Avoid second hand smoking Robbie Prescott MD Jul 16, 2016 13:50
== END 2016-07-16 16:25 | disposition home or self-care (01) | DRG 885 ==
LOC: H260 17:41
PROVIDERS: ADMIT Psychiatry & Neurology Psychiatry; ATTEND Psychiatry & Neurology Psychiatry
DX: F25.8 Other schizoaffective disorders (principal); F41.9 Anxiety disorder, unspecified; Z72.0 Tobacco use
CPT/HCPCS: 93005

== ENCOUNTER 2018-06-13 01:58 | Inpatient (IN) ==
--- NOTE | 2018-06-13 02:21 | ED ---
HPI General Chief Complaint: Psychiatric Symptoms Stated Complaint: vol psych screen Time Seen by Provider: 06/13/18 02:08 Source: patient Mode of arrival: ambulatory Limitations: no limitations History of Present Illness HPI Narrative: 32-year-old woman presents to the emergency department complaining of jittery shaking throughout her organs and auditory hallucinations. She is extremely bizarre and difficult to get an accurate history from. She was just evaluated by Dr. Beck, and apparently wandered out to her car and came back in to be checked in. She is awaiting voluntary psychiatric evaluation. She describes intermittent buzzing throughout her entire body in her eyes nose teeth vagina. States it first happened about 4 years ago happens intermittently in spurts. [place] was positive for amphetamine she states that she takes phentermine for weight loss and denies any illicit drug use. She also endorses auditory hallucinations but she is very difficult to pin down. Related Data Home Medications Medication Instructions Recorded Confirmed phentermine 8 mg PO TID 06/13/18 06/13/18 Allergies Allergy/AdvReac Type Severity Reaction Status Date / Time No Known Allergies Allergy Verified 06/12/18 19:05 Review of Systems ROS: all other systems reviewed are negative PMFSH History History Provided By: Patient and Medical Record Medical History Medical History Patient denies medical problems (Acute) Social History Social History Substance History: No History of Abuse Second Hand Smoke Exposure: No Smoking Status: Former smoker Tobacco Type: Cigarettes How Often Do You Have a Drink Containing Alcohol: Never Recent Travel in [facility] within the Last 8 Weeks: No Recent Out of Country Travel within the Last 8 Weeks: No Exam Narrative Exam Narrative: GENERAL: 32-year-old woman, nontoxic no acute distress. SKIN: Focused skin assessment warm/dry. HEAD: Atraumatic. Normocephalic. EYES: Pupils equal and round. No scleral icterus. No injection or drainage. ENT: No nasal bleeding or discharge. Mucous membranes pink and moist. NECK: Trachea midline. No JVD. CARDIOVASCULAR: Regular rate and rhythm. No murmur appreciated. RESPIRATORY: No accessory muscle use. Clear to auscultation. Breath sounds equal bilaterally. GASTROINTESTINAL: Abdomen soft, non-tender, nondistended. Hepatic and splenic margins not palpable. MUSCULOSKELETAL: No obvious deformities. No clubbing. No cyanosis. No edema. NEUROLOGICAL: Awake and alert. No obvious cranial nerve deficits. Motor grossly within normal limits. Normal speech. PSYCHIATRIC: Appropriate mood and affect; insight and judgment normal. Course Initial Documented Vital Signs Temperature 98 F 06/13/18 02:00 Pulse Rate 76 06/13/18 02:00 Respiratory Rate 16 06/13/18 02:00 Blood Pressure 108/68 06/13/18 02:00 Pulse Oximetry 100 06/13/18 02:00 Last Documented Vital Signs Temperature 98 F 06/13/18 02:00 Pulse Rate 76 06/13/18 02:00 Respiratory Rate 16 06/13/18 02:00 Blood Pressure 108/68 06/13/18 02:00 Pulse Oximetry 100 06/13/18 02:00 Medical Decision Making MDM Narrative Medical decision making narrative: 32-year-old woman with reported auditory hallucinations, bizarre anxiety type complaints, possibly manic, with no reported history of psychosis, possibly adverse effect to phentermine although she states she has not taken it in 2 days. Denies illicit drug use but is positive for amphetamine. Possible this is related to the phentermine. Reviewed recent lab tests from earlier today. She is medically clear. There is no medical etiology for her symptoms. We will plan psychiatric evaluation possible psychosis, cherise. Medical Screen Exam Complete: Yes Emergency Medical Condition: Yes Discharge Plan Discharge Disposition Patient Disposition: Sign Out(ED Internal Use Only) Physicians Team ED Provider: Amanuel Quarles Primary Care Provider: Rebeca Mercado Rxs /Orders / Referrals /Forms Prescriptions: No Action phentermine 8 mg Tablet 8 mg PO TID RF: 0 Status ED Status: Medically Cleared
[2018-06-13] MEDS ORDERED: Acetaminophen 325 MG Tablet PO PRN (14:56)
[2018-06-13] MEDS ORDERED: Benztropine Inj 2 MG/2 ML Ampul IM PRN (14:56)
[2018-06-13] MEDS ORDERED: Aluminum/Magnesium/Simethacone Susp 30 ML UDC PO PRN (14:56)
--- NOTE | 2018-06-13 15:00 | P.HPPSY ---
Provisional Diagnosis Admission Date: June 13, 2018 01:58 [place] I.: 1. Unspecified psychosis Suspect schizophrenia but rule out component of stimulant induced psychotic disorder [place] II.: Deferred Competence Certification of Person's Competence To Provide Express and Informed Consent I have personally examined Samina Watson, a person being served at [facility] on, June 13, 2018 1500. Express and informed consent means consent voluntarily given in writing, by a competent person, after sufficient explanation and disclosure of the subject matter involved to enable the person to make a knowing and willful decision without any element of force, fraud, deceit, duress, or other form of constraint or coercion. This person is 18 years of age or older, is not now known to be incompetent to consent to treatment with a guardian advocate, and does not have a health care surrogate or proxy currently making medical treatment decisions. I have found this person to be one of the following: [X] Competent to provide express and informed consent, as defined above, for voluntary admission to this facility and is competent to provide express and informed consent for treatment. He/she has the consistent capacity to make well reasoned, willful, and knowing decisions concerning his or her medical or mental health treatment. The person fully and consistently understands the purpose of the admission for examination/placement and is fully capable of personally exercising all rights [place] Incompetent to provide express and informed consent to voluntary admission, and this is incompetent to provide express and informed consent to treatment. The person must be transferred to involuntary status and a petition for a guardian advocate filed with the Circuit Court. [] Refusing to provide express and informed consent to voluntary admission but is competent to provide express and informed consent for treatment. The person must be discharged or transferred to involuntary status. Form shall be completed within 24 hours of a person's arrival at the receiving facility and filed in the clinical record of each person: 1. Admitted on a voluntary basis 2. Permitted to provide express and informed consent to his/her own treatment 3. Allowed to transfer from involuntary to voluntary status 4. Prior to permitting a person to consent to his or her own treatment after having been previously found incompetent to consent to treatment. History of Present Illness Capacity: Has capacity Chief Complaint: Psychosis History of Present Illness: Ms. Watson is a 32-year-old female with no reported previous psychiatric diagnoses and a chart history of schizoaffective disorder and anxiety who presents voluntarily for psychiatric evaluation. Patient told the ED provider that she felt jittery, like her organs were being shaken, and also described auditory hallucinations. Reviewing the electronic medical record, I note the patient was psychiatrically hospitalized here under Dr. Prescott in 2017. He prescribed Seroquel and Abilify, although it does not appear that the patient accepted either of these medications. Patient seen and examined in E pod. Chart reviewed. Case discussed with nursing staff. On my examination today, the patient says that she has been experiencing auditory hallucinations intermittently for several years. She does not recognize these as hallucinatory and believes that someone is trying to influence her mind. These voices come from outside of her head are chiefly deprecatory but occasionally command, for example telling her to move. She denies any command auditory hallucinations to hurt herself or others. She says that these voices sometimes take the form of people familiar to her. She also endorses occasional olfactory hallucinations of perfumes. She denies any visual or tactile hallucinations. She does endorse feelings of being manipulated and perseverates on the government being after her in some way. She says that her sleep and appetite are consequently poor. She also feels somewhat anxious and says that "there is no pleasing them." It is unclear here whether she is referring to her voices or the government or someone else. She denies any suicidal or homicidal ideation. She describes her mood as "content. " Remainder of the psychiatric ROS is negative. Besides jittery feeling, no acute physical complaints. Past psychiatric history: The patient denies a history of psychiatric diagnosis. She is not presently under the care of a psychiatrist. When asked about history of psychiatric admissions or suicide attempts the patient replies that she cannot recall. Family history: Patient denies a family history of serious mental illness or suicide. Chemical dependency history: Patient denies any abuse of drugs or alcohol. Her urine toxicology is positive for amphetamines, and the patient reports that she was recently restarted on phentermine for weight loss by her primary care doctor. She denies that there has been any exacerbation in her psychotic symptoms in the setting of resumption of phentermine. Social history: Patient lives with her family. She is single with no children. She has a bachelor's degree in [employer]. She is reportedly looking for work. She denies any history. Denies any legal history. Denies any access to guns or firearms. Believes in God. Denies any history of trauma. Past medical history: Patient denies any medical history. In particular she denies any history of seizure, head trauma, [employer] infection. Home medications: Phentermine. Allergies: No known allergies. Patient's mother, Romy, arrives towards the end of our interview. Patient allows Romy to provide me with some collateral. Romy notes that the patient has a history of inpatient psychiatric treatment in the past for psychotic symptoms. He has reportedly been placed on Abilify but found this medication to be too sedating and did not continue it. Patient's maternal aunt reportedly has a history of similar symptoms. Review of Systems All other systems reviewed negative except as stated in HPI (Limitation: Psychosis) PMFSH - History History Provided By: Patient, Medical Record - Medical History Medical History: Medical History (Last Reviewed 06/13/18 @ 02:19 by Amanuel Quarles MD) Patient denies medical problems - Tobacco History Second Hand Smoke Exposure: No Tobacco Use In Past 30 Days: No Smoking Status: Former smoker Tobacco Type: Cigarettes - Alcohol History How Often Do You Have a Drink Containing Alcohol: Never - Substance Use History Substance History: No History of Abuse - Travel History Recent Travel in the [place] Within the Last 8 Weeks: No Recent Travel Out of the Country Within the Last 8 Weeks: No - Immunization History Tetanus Immunization: <5 Years Medications and Allergies Active Medications: Active Medications Acetaminophen (Tylenol) 650 mg PO Q4H PRN PRN Reason: Pain 1-5 or Temp >101F Al Hydrox/Mg Hydrox/Simethicone (Mag-Al Plus Susp Liq) 30 ml PO Q6H PRN PRN Reason: DYSPEPSIA Al Hydroxide/Mg Hydroxide (Milk Of Magnesia Liq) 30 ml PO Q12H PRN PRN Reason: Mild Constipation Benztropine Mesylate (Cogentin) 1 mg PO Q12H PRN PRN Reason: EXTRA PYRAMIDAL SYMPTOMS Benztropine Mesylate (Cogentin Inj) 1 mg IM Q12H PRN PRN Reason: EXTRA PYRAMIDAL SYMPTOMS Diphenhydramine HCl (Benadryl) 50 mg PO HS PRN PRN Reason: INSOMNIA Hydroxyzine HCl (Atarax) 25 mg PO Q6H PRN PRN Reason: ANXIETY Nicotine (Habitrol 14 Mg Patch.24 Hr) 1 patch T-DERMAL DAILY PRN PRN Reason: Nicotine craving Patch Removal (Remove Old Patch) 1 each T-DERMAL HS DORIS Ziprasidone (Geodon) 40 mg PO BIDPC DORIS Allergies Allergy/AdvReac Type Severity Reaction Status Date / Time No Known Allergies Allergy Verified 06/12/18 19:05 Home Medications Medication Instructions Recorded Confirmed Type phentermine 8 mg PO TID 06/13/18 06/13/18 History Results - Labs Labs: No laboratories were obtained today. The patient did present to the ED yesterday with similar complaints at which time laboratories were obtained: Laboratory Tests 06/12/18 06/12/18 06/12/18 19:40 19:50 19:50 WBC 9.3 Hgb 13.8 Plt Count 287 Sodium 141 Potassium 4.1 Chloride 109 H Carbon Dioxide 23.9 Anion Gap 8 BUN 18 Creatinine 1.05 H Estimated GFR 60 L Random Glucose 99 Calcium 8.8 Magnesium 2.4 Total Bilirubin 0.3 AST 16 ALT 20 Alkaline Phosphatase 77 Total Protein 8.2 Albumin 4.1 TSH 2.190 Ur Amphetamines Screen Pos H Serum Alcohol Less than 3 ED [id number] test yesterday was negative. Exam Vital signs: Vital Signs 06/13/18 02:00 06/13/18 12:25 Temperature 98 F Pulse Rate 76 77 Respiratory Rate 16 14 Blood Pressure 108/68 115/67 Pulse Oximetry 100 100 Intake & Output 06/12/18 06/13/18 06/13/18 18:59 06:59 18:59 Weight 83.915 kg Narrative: Physical exam completed by ED provider. On my examination today, the patient appears to be in no acute physical distress. No motor abnormalities noted. No signs of intoxication or withdrawal noted. Labs and vital signs reviewed. Mental Status Examination Appearance: Appropriate Consciousness: Alert Orientation: x4 Motor Activity: Other (No motor abnormalities noted) Speech: Unremarkable Language: Adequate Fund of Knowledge: Adequate Attention and Concentration: Adequate Memory: Unremarkable Mood: Other ("Content") Affect: Appropriate, Euthymic Thought Process & Associations: Intact Thought Content: Hallucinations, Delusional Hallucination Type: Auditory, Command Delusion Type: Paranoid Suicidal Ideation: No Suicidal Plan: No Suicidal Intention: No Homicidal Ideation: No Homicidal Plan: No Homicidal Intention: No Mental Status Exam Remarks: Insight seems fair to poor. Judgment is fair; patient has been seeking treatment for her problem, although she does not necessarily identify it as a psychiatric issue. Assessment and Plan - Assessment (1) Unspecified psychosis Code(s): F29 - Unspecified psychosis not due to a substance or known physiological condition Status: Acute - Plan Plan: 32-year-old female with psychiatric history as detailed above who presents voluntarily for evaluation. On my examination today, the patient describes auditory hallucinations of several years duration with associated paranoia. My suspicion is that the patient suffers from a primary psychotic disorder, such as schizophrenia. The patient has reportedly recently been using phentermine for weight loss, without reported impact on psychotic symptoms. She does have a history of previous psychiatric hospitalizations, and so we will try to obtain records to ensure that workup for medical/neurological causes of psychosis has been completed. I will plan to admit the patient to the inpatient psychiatric unit for observation and stabilization. Admit inpatient. Voluntary status. I have discussed with patient the conditions of voluntary admission to the inpatient psychiatric unit. For management of patient's psychotic symptoms, initiate Geodon 40 mg twice daily with meals with plans to titrate to effect and as tolerated. Check EKG for QTc and hold antipsychotic if QTc greater than 450 ms. Atarax as needed for anxiety. Benadryl as needed for sleep. Cogentin as needed for EPS. Check BMP in the morning to follow-up decreased GFR along with lipid panel and hemoglobin A1c. Check a beta hCG at that time, although urine [id number] test yesterday was negative and so low index of suspicion for . Vitals every shift. Counselor to see. Disposition planning. Estimated length of stay: 5-7 days. Justification for Continued Inpatient Stay: Impairment in reality construction. Medication changes. Discharge Planning: Pending psychiatric stabilization. Request Healthcare Surrogate/Guardian Advocate?: No
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
--- NOTE | 2018-06-15 12:04 | P.DSPSY ---
Psychiatry Discharge Summary Inpatient Psychiatric care?: Yes Advance Directives: No Mental Health Advance Directive: No Health Care Proxy: No - Admission Admission Date: June 13, 2018 14:59 - Admission Diagnosis (1) Emotionally unstable borderline personality disorder in adult Code(s): F60.3 - Borderline personality disorder Brief History: Ms. Watson is a 32-year-old female with no reported previous psychiatric diagnoses and a chart history of schizoaffective disorder and anxiety who presents voluntarily for psychiatric evaluation. Patient told the ED provider that she felt jittery, like her organs were being shaken, and also described auditory hallucinations. Reviewing the electronic medical record, I note the patient was psychiatrically hospitalized here under Dr. Prescott in 2017. He prescribed Seroquel and Abilify, although it does not appear that the patient accepted either of these medications. Patient seen and examined in E pod. Chart reviewed. Case discussed with nursing staff. On my examination today, the patient says that she has been experiencing auditory hallucinations intermittently for several years. She does not recognize these as hallucinatory and believes that someone is trying to influence her mind. These voices come from outside of her head are chiefly deprecatory but occasionally command, for example telling her to move. She denies any command auditory hallucinations to hurt herself or others. She says that these voices sometimes take the form of people familiar to her. She also endorses occasional olfactory hallucinations of perfumes. She denies any visual or tactile hallucinations. She does endorse feelings of being manipulated and perseverates on the government being after her in some way. She says that her sleep and appetite are consequently poor. She also feels somewhat anxious and says that "there is no pleasing them." It is unclear here whether she is referring to her voices or the government or someone else. She denies any suicidal or homicidal ideation. She describes her mood as "content. " Remainder of the psychiatric ROS is negative. Besides jittery feeling, no acute physical complaints. Past psychiatric history: The patient denies a history of psychiatric diagnosis. She is not presently under the care of a psychiatrist. When asked about history of psychiatric admissions or suicide attempts the patient replies that she cannot recall. Family history: Patient denies a family history of serious mental illness or suicide. Chemical dependency history: Patient denies any abuse of drugs or alcohol. Her urine toxicology is positive for amphetamines, and the patient reports that she was recently restarted on phentermine for weight loss by her primary care doctor. She denies that there has been any exacerbation in her psychotic symptoms in the setting of resumption of phentermine. Social history: Patient lives with her family. She is single with no children. She has a bachelor's degree in [employer] healthcare. She is reportedly looking for work. She denies any history. Denies any legal history. Denies any access to guns or firearms. Believes in God. Denies any history of trauma. Past medical history: Patient denies any medical history. In particular she denies any history of seizure, head trauma, [employer] infection. Home medications: Phentermine. Allergies: No known allergies. Patient's mother, Romy, arrives towards the end of our interview. Patient allows Romy to provide me with some collateral. Romy notes that the patient has a history of inpatient psychiatric treatment in the past for psychotic symptoms. He has reportedly been placed on Abilify but found this medication to be too sedating and did not continue it. Patient's maternal aunt reportedly has a history of similar symptoms. Tobacco Use In Past 30 Days: No How Often Do You Have a Drink Containing Alcohol: Never Hospital Course: June 15, 2018 This morning the patient denies all symptoms. She is uncooperative and contradictory. She denies have any problems other than feeling a bit shaky when she came to the ED. She then explains that her shakiness comes and goes felt at this morning. However she refuses any treatment denies ever having any psychiatric care. When confronted with past history of such care of the patient denies. Patient is demanding discharge. He denies any suicidal thoughts. She denies auditory visual hallucinations she denies any delusional thinking she denies homicidal intent. It is not felt that the patient meets criteria for involuntary hospitalization. - Discharge Discharge Date: 06/15/18 Discharge Disposition: Home - Discharge Instructions Discharge Diet: Regular Diet Activities You Can Perform: Regular- No Restrictions - Discharge Time > 30 minutes Mental Status Examination Appearance: Appropriate Consciousness: Alert Orientation: x4 Motor Activity: Other (No motor abnormalities noted) Speech: Unremarkable Language: Adequate Fund of Knowledge: Adequate Attention and Concentration: Adequate Memory: Unremarkable Mood: Oppositional, Other ("Content") Affect: Irritable Thought Process & Associations: Intact Thought Content: Hallucinations, Delusional Hallucination Type: Auditory, Command Delusion Type: Bizarre, Paranoid Suicidal Ideation: No Suicidal Plan: No Suicidal Intention: No Homicidal Ideation: No Homicidal Plan: No Homicidal Intention: No Insight: Poor Judgment: Poor Discharge/Advance Care Plan - Results Vital Signs: Last Vital Signs Temp 97.6 F 06/15/18 06:00 Pulse 71 06/15/18 06:00 Resp 15 06/15/18 06:00 BP 106/57 L 06/15/18 06:00 Pulse Ox 97 06/15/18 06:00 Lab Results: None significant to the current presentation Summary of Procedures: None Pending Results: None - Medications Number of antipsychotic medications at discharge: 0 - Discharge Care Plan Goals to Promote Your Health: * To prevent worsening of your condition and complications * To maintain your health at the optimal level Directions to Meet Your Goals: Take your medications as prescribed Follow your dietary instruction Follow activity as directed Keep your appointments as scheduled Take your immunizations and boosters as scheduled If your symptoms worsen call your PCP, if no PCP go to Urgent Care Center or Emergency Room For 20/01 questions related to your inpatient stay or results of tests pending at discharge, please contact Dr. Gama Chicas MD at Smoking is Dangerous to Your Health. Avoid second hand smoking
== END 2018-06-15 13:00 | disposition home health service (06) ==
LOC: NEPE 01:58 → NEDA 14:59 → H260 16:08 → H4EA 17:59
PROVIDERS: ADMIT Psychiatry & Neurology Child & Adolescent Psychiatry; ATTEND Psychiatry & Neurology Child & Adolescent Psychiatry